=== PATIENT | female | born 1980 | race Asian ===

== ENCOUNTER 2017-07-20 09:26 | Inpatient (IN) | payer SELFPAY ==
[~2017-07-20] VITALS: Ht 160 cm; Wt 60.8 kg
[2017-07-20] MEDS ORDERED: LACTATED RINGERS 1,000 ML IV SCH (09:53)
[2017-07-20] MEDS ORDERED: PROMETHAZINE 25 MG/ML VIAL IVP PRN (09:55)
[2017-07-20] MEDS ORDERED: OXYTOCIN 20 UNITS in LACTATED RINGERS 1,000 ML IV SCH (09:55)
[2017-07-20] MEDS ORDERED: OXYTOCIN 10 UNITS/ML VIAL IM SCH (09:55)
[2017-07-20] MEDS ORDERED: CARBOPROST 250 MCG/ML AMP IM PRN (09:55)
[2017-07-20] MEDS ORDERED: METHYLERGONOVINE 0.2 MG/ML AMP IM PRN ×2 (09:55→15:50)
[2017-07-20] MEDS ORDERED: NALBUPHINE HYDROCHLORIDE 10 MG/ML VIAL IVP PRN (09:55)
[2017-07-20 10:53] VITALS: BP 114/71
[2017-07-20] MEDS ORDERED: PREN-380 PO (11:00)
[2017-07-20] MEDS ORDERED: LEVO0.0712 PO (11:00)
[2017-07-20 11:30] LABS: BASOPHILS # (AUTO) 0.1 K/uL (0.00-0.22); BASOPHILS % (AUTO) 0.8 % (0.0-2.0); EOSINOPHILS # (AUTO) 0.1 K/uL (0-0.4); HEMATOCRIT 40.6 % (36-48); HEMOGLOBIN 13.7 g/dL (12.0-16.0); LYMPHOCYTES # (AUTO) 1.1 K/uL (2.5-16.5); LYMPHOCYTES % (AUTO) 10.6 % (20.5-51.1); MEAN CORPUSCULAR HEMOGLOBIN 33 pg (27-31); MEAN CORPUSCULAR HGB CONC 34 g/dL (33-37); MEAN CORPUSCULAR VOLUME 97 fL (80-94); MONOCYTES # (AUTO) 0.8 K/uL (0.8-1.0); MONOCYTES % (AUTO) 7.1 % (1.7-9.3); NEUTROPHILS # (AUTO) 8.5 K/uL (1.8-7.7); NEUTROPHILS % (AUTO) 80.5 % (42.2-75.2); PLATELET COUNT (AUTO) 154 K/uL (140-450); RED BLOOD CELL COUNT(AUTO) 4.17 MIL/uL (4.20-5.40); RED CELL DISTRIBUTION WIDTH 13.4 % (11.6-13.7); WHITE BLOOD COUNT (AUTO) 10.6 K/uL (4.8-10.8)
[2017-07-20 11:31] LABS: APPEARANCE,URINE CLEAR (CLEAR); BILIRUBIN,URINE NEGATIVE (NEGATIVE); BLOOD, URINE TRACE-I (NEGATIVE); COLOR,URINE YELLOW (YELLOW); LEUKOCYTE ESTERASE ,URINE NEGATIVE (NEGATIVE); NITRITE, URINE NEGATIVE (NEGATIVE); PH,URINE 7.5 (5.0-9.0); UGLUCOSE NEGATIVE (NEGATIVE)
[2017-07-20 11:44] LABS: RBC,URINE NONE SEEN /HPF (0-5); WBC,URINE 0-5 (RARE) /HPF (0-5)
[2017-07-20] MEDS ORDERED: NALBUPHINE HYDROCHLORIDE 10 MG/ML VIAL ONE (12:45)
[2017-07-20 12:52] LABS: CARBON DIOXIDE 26.6 mmol/L (21-32); CREATININE 0.4 mg/dL (0.6-1.3); POTASSIUM 3.6 mmol/L (3.5-5.1)
[2017-07-20 12:58] LABS: ALBUMIN 2.8 g/dL (3.4-5.0); TOTAL BILIRUBIN 0.9 mg/dL (0.0-1.0)
[2017-07-20] MEDS ORDERED: ROPIVACAINE 0.2%/NS PREMIX 250 ML EPI ONE (12:59)
[2017-07-20] MEDS ORDERED: fentaNYL 0.05 MG/ML VIAL ONE (12:59)
[2017-07-20] MEDS ORDERED: OXYTOCIN 10 UNITS/ML VIAL ONE (14:45)
[2017-07-20] MEDS ORDERED: MEASLES, MUMPS, AND RUBELLA 1 VIAL SQVAC PRN (15:50)
[2017-07-20] MEDS ORDERED: TEMAZEPAM 15 MG CAP PO PRN (15:50)
[2017-07-20] MEDS ORDERED: oxyCODONE/APAP 5/325 MG 1 TAB TAB PO PRN (15:50)
[2017-07-20] MEDS ORDERED: BENZOCAINE/MENTHOL 20%-0.5% 60 GM CAN TP PRN (15:50)
[2017-07-20] MEDS ORDERED: HYDROcodone/APAP 5/325 MG 1 TAB TAB PO PRN (15:50)
[2017-07-20] MEDS ORDERED: OXYTOCIN 10 UNITS/ML VIAL IM PRN (15:50)
[2017-07-20] MEDS: IBUPROFEN 800 MG TAB PO PRN (20:50)
[2017-07-20] MEDS ORDERED: DOCUSATE SOD/SENNA 50/8.6 MG 1 TAB PO SCH (21:00)
[2017-07-21] MEDS: IBUPROFEN 800 MG TAB PO PRN ×2 (05:31→14:26)
[2017-07-21 06:37] LABS: HEMATOCRIT 37.6 % (36-48); HEMOGLOBIN 12.8 g/dL (12.0-16.0)
[2017-07-21] MEDS: LEVOTHYROXINE 0.075 MG TAB PO SCH (06:52)
--- NOTE | 2017-07-21 10:00 | NUR ---
PATIENT HAS BEEN SCREENED AND CATEGORIZED LOW NUTRITION RISK. PATIENT WILL BE SEEN WITHIN 7 DAYS OF ADMISSION. 07/26/[address]
[2017-07-22] MEDS: IBUPROFEN 800 MG TAB PO PRN (05:45)
[2017-07-22] MEDS: LEVOTHYROXINE 0.075 MG TAB PO SCH (06:54)
== END 2017-07-22 13:00 | disposition home or self-care (01) | DRG 775 ==
LOC: MLD 09:26 → MFCC 20:00 → MMU 07-21 06:00 → MFCC 07-21 06:04
PROVIDERS: ADMIT Obstetrics & Gynecology; ATTEND Obstetrics & Gynecology
PROC: 10E0XZZ Delivery of Products of Conception, External Approach (ICD-10-PCS; principal; 2017-07-20)
PROC: 0HQ9XZZ Repair Perineum Skin, External Approach (ICD-10-PCS; 2017-07-20)
PROC: 00HU33Z Insertion of Infusion Device into Spinal Canal, Percutaneous Approach (ICD-10-PCS; 2017-07-20)
PROC: 3E0R3CZ (ICD-10-PCS; 2017-07-20)
PROC: 3E0234Z Introduction of Serum, Toxoid and Vaccine into Muscle, Percutaneous Approach (ICD-10-PCS; 2017-07-21)
DX: O99.284 Endocrine, nutritional and metabolic diseases complicating childbirth (principal); E03.9 Hypothyroidism, unspecified; Z37.0 Single live birth; O69.1XX0 Labor and delivery complicated by cord around neck, with compression, not applicable or unspecified; Z3A.39 39 weeks gestation of pregnancy; O77.0 Labor and delivery complicated by meconium in amniotic fluid; O70.0 First degree perineal laceration during delivery; Z23 Encounter for immunization
CPT/HCPCS: 36415; 51702; 80053; 81001; 85018; 85025; 86592; 86886; 86900; 86901; 90715; J2300; J2590; J2795; J3010; J7120